=== PATIENT | female | born 1995 | race Two or more races ===

== ENCOUNTER 2023-05-16 11:23 | Inpatient (IN) | payer MEDICAID, OTHER ==
[~2023-05-16] VITALS: Ht 154.9 cm; Wt 67.5 kg
[2023-05-16] MEDS ORDERED: MORPHINE SULFATE 4 MG/ML SYR/VIAL IV ONE (12:15)
[2023-05-16] MEDS ORDERED: ONDANSETRON HCL 4 MG/2 ML VIAL IV ONE (12:15)
[2023-05-16 12:18] LABS: Basophils # (auto) 0 10 ^3/uL (0-0.2); Basophils % (auto) 0.1 % (0.0-2.0); Eosinophils # (auto) 0 10 ^3/uL (0-0.8); Eosinophils % (auto) 0.1 % (0.0-7.0); Hematocrit 32.8 % (36.0-46.0); Hemoglobin 10.5 g/dL (12.2-16.2); Lymphocytes # (auto) 1.8 10 ^3/uL (0.4-5.4); Lymphocytes % (auto) 9.6 % (10.0-50.0); Mean Corpuscular Hemoglobin 27.1 pg (28.0-32.0); Mean Corpuscular Volume 84.7 fL (80.0-100.0); Monocytes # (auto) 0.8 10 ^3/uL (0-1.3); Monocytes % (auto) 4.3 % (0.0-12.0); Neutrophils # (auto) 16.1 10 ^3/uL (1.6-8.6); Neutrophils % (auto) 85.9 % (37.0-80.0); Red Blood Cells 3.87 10^6/uL (4.0-5.20); Red Cell Distribution Width 15.8 % (11.8-14.3); White Blood Cell 18.7 10^3/uL (4.4-10.8)
[2023-05-16 12:33] LABS: Alkaline Phosphatase 93 U/L (46-116); Anion Gap 7 (5-15); Aspartate Aminotransferase 9 U/L (13-40); Bilirubin, Total 0.5 mg/dL (0.2-1.0); Blood Urea Nitrogen 6 mg/dL (9-23); Calcium 8.9 mg/dL (8.7-10.4); Carbon Dioxide 25 mmol/L (20-30); Chloride 105 mmol/L (98-107); Glucose 124 mg/dL (74-106); Potassium 3.4 mmol/L (3.5-5.1); Sodium 137 mmol/L (136-145); Total Protein 6.8 g/dL (5.7-8.2)
[2023-05-16 12:36] LABS: Alanine Aminotransferase < 9 U/L (7-40)
[2023-05-16 13:07] LABS: INR 1.06 (0.9-1.15); Partial Thromboplastin Time 26.5 SEC (24.5-34.5); Prothrombin Time 11.1 sec (9.3-11.8)
[2023-05-16] MEDS ORDERED: KETOROLAC TROMETH 30 MG/ML 1ML VIAL IV ONE (15:00)
[2023-05-16] MEDS ORDERED: NS/OXYTOCIN 20UNITS 1,000 ML IV ONE (15:15)
[2023-05-16] MEDS ORDERED: ceFAZolin 1GM/50ML 50 ML IV ONE (15:15)
[2023-05-16] MEDS ORDERED: miSOPROStol 50 MCG per PRE-CUT 1/2 TAB PR ONE (15:15)
[2023-05-16 15:54] LABS: INR 1.07 (0.9-1.15); Partial Thromboplastin Time 26.9 SEC (24.5-34.5); Prothrombin Time 11.2 sec (9.3-11.8)
[2023-05-16] MEDS ORDERED: ZOFR4T PO (17:23)
[2023-05-16] MEDS ORDERED: HYDR-4902 PO (17:23)
[2023-05-16] MEDS ORDERED: FERR1TAB17 PO (17:23)
[2023-05-16] MEDS ORDERED: ACETAMINOPHEN 325 MG TAB PO PRN (17:30)
[2023-05-16] MEDS ORDERED: POTASSIUM CHL 20MEQ/100ML 100 ML IV ONE (17:30)
[2023-05-16] MEDS ORDERED: ONDANSETRON HCL 4 MG/2 ML VIAL IV PRN ×2 (17:30→18:00)
[2023-05-16] MEDS ORDERED: HYDROcodone-ACET 5/325MG TAB PO PRN (17:30)
[2023-05-16] MEDS ORDERED: fentaNYL CITRATE 100 MCG/2 ML VL ONE (17:52)
[2023-05-16] MEDS ORDERED: PROPOFOL 10 MG/ML 20 ML IV ONE (17:52)
[2023-05-16] MEDS ORDERED: METOCLOPRAMIDE HCL 5MG/ml INJ 2ml VIAL IV PRN (18:00)
[2023-05-16] MEDS ORDERED: RHO (D) IMMUNE GLOBULIN 300 MCG INJ IM PRN (18:00)
[2023-05-16] MEDS ORDERED: MEPERIDINE HCL (25 MG/ML) 1ML VIAL IV PRN (18:00)
[2023-05-16] MEDS ORDERED: HYDROmorphone HCL 2 MG/ML VL/or syr IV PRN (18:00)
[2023-05-16] MEDS ORDERED: ePHEDrine SULFATE 50 MG/ML AMP ONE (18:09)
[2023-05-16] MEDS ORDERED: MEPERIDINE HCL (25 MG/ML) 1ML VIAL ONE (18:10)
[2023-05-16 18:22] VITALS: O2SAT 100
[2023-05-16 20:00] VITALS: PULSE 109; RESP 16; O2SAT 98
[2023-05-16 20:05] VITALS: BP 112/66; PULSE 116; RESP 20; TEMP 97.6; O2SAT 98
[2023-05-16] MEDS: SODIUM CHLORIDE 0.9% 1,000 ML IV SCH (20:43)
[2023-05-16 22:00] VITALS: BP 117/66; PULSE 109; RESP 16; TEMP 97.6; O2SAT 98
[2023-05-16] MEDS: ceFAZolin 1GM/50ML 50 ML IV SCH (23:46)
[2023-05-17] VITALS (11 sets, daily range): BP systolic 93–116; BP diastolic 45–68; PULSE 72–112; RESP 16–19; TEMP 37.2; O2SAT 98–100
[2023-05-17] MEDS: ceFAZolin 1GM/50ML 50 ML IV SCH ×3 (05:30→20:49)
[2023-05-17] MEDS: SODIUM CHLORIDE 0.9% 1,000 ML IV SCH ×3 (05:33→18:25)
[2023-05-17 06:19] LABS: Urine Bacteria NONE SEEN /hpf (None Seen); Urine Blood 3+ /uL (Negative); Urine Clarity Clear (Clear); Urine Color Yellow (Yellow); Urine Mucus FEW (None Seen); Urine Protein, UAD 1+ (Negative); Urine Urobilinogen Normal (Negative); Urine WBC 11 /hpf (0 - 5); Urine pH 5.5 (5.0-8.0)
[2023-05-17 06:33] LABS: Alkaline Phosphatase 56 U/L (46-116); Anion Gap 6 (5-15); Calcium 7.7 mg/dL (8.7-10.4); Carbon Dioxide 23 mmol/L (20-30); Chloride 109 mmol/L (98-107); Glucose 106 mg/dL (74-106); Potassium 3.8 mmol/L (3.5-5.1); Sodium 138 mmol/L (136-145)
[2023-05-17 06:34] LABS: Albumin 2.9 g/dL (3.2-4.8); Aspartate Aminotransferase 8 U/L (13-40); Bilirubin, Total 0.4 mg/dL (0.2-1.0); Total Protein 5.1 g/dL (5.7-8.2)
[2023-05-17 06:38] LABS: Amphetamine Screen, Urine Neg (NEGATIVE)
[2023-05-17 06:39] LABS: Barbiturate Scree,Urine Neg (NEGATIVE); Benzodiazephine Screen, Urine Neg (NEGATIVE); Cannabinoid Screen, Urine Neg (NEGATIVE); Cocaine Screen, Urine Neg (NEGATIVE); Opiate Scree,Urine Pos (NEGATIVE); Phencyclidine Screen, Urine Neg (NEGATIVE)
[2023-05-17 06:44] LABS: Alanine Aminotransferase < 9 U/L (7-40); BUN/Creatinine Ratio 10.6 (10.0-20.0); Blood Urea Nitrogen < 5 mg/dL (9-23)
[2023-05-17 06:50] LABS: Basophils # (auto) 0 10 ^3/uL (0-0.2); Eosinophils # (auto) 0 10 ^3/uL (0-0.8)
[2023-05-17 06:53] LABS: Basophils % (auto) 0.3 % (0.0-2.0); Eosinophils % (auto) 0.4 % (0.0-7.0); Hematocrit 18.4 % (36.0-46.0); Lymphocytes # (auto) 2.1 10 ^3/uL (0.4-5.4); Lymphocytes % (auto) 20.2 % (10.0-50.0); Mean Corpuscular Hemoglobin 27.7 pg (28.0-32.0); Mean Corpuscular Hgb Conc. 32.5 g/dL (32.0-36.0); Mean Corpuscular Volume 85.2 fL (80.0-100.0); Monocytes # (auto) 0.6 10 ^3/uL (0-1.3); Monocytes % (auto) 5.5 % (0.0-12.0); Neutrophils # (auto) 7.8 10 ^3/uL (1.6-8.6); Neutrophils % (auto) 73.6 % (37.0-80.0); Red Blood Cells 2.16 10^6/uL (4.0-5.20); Red Cell Distribution Width 15.4 % (11.8-14.3); White Blood Cell 10.6 10^3/uL (4.4-10.8)
[2023-05-17 10:49] LABS: Hepatitis B Surface Antigen Negative (Negative)
[2023-05-17 11:13] LABS: Hepatitis C Antibody Negative (Negative)
[2023-05-18] MEDS: SODIUM CHLORIDE 0.9% 1,000 ML IV SCH ×2 (02:50→11:08)
[2023-05-18 04:53] VITALS: BP 104/55; PULSE 72; RESP 17; TEMP 98; O2SAT 98
[2023-05-18] MEDS: ceFAZolin 1GM/50ML 50 ML IV SCH (05:11)
[2023-05-18 05:23] LABS: Basophils # (auto) 0 10 ^3/uL (0-0.2); Basophils % (auto) 0.6 % (0.0-2.0); Eosinophils # (auto) 0.1 10 ^3/uL (0-0.8); Eosinophils % (auto) 1.5 % (0.0-7.0); Hematocrit 26.4 % (36.0-46.0); Hemoglobin 8.9 g/dL (12.2-16.2); Lymphocytes # (auto) 2.9 10 ^3/uL (0.4-5.4); Lymphocytes % (auto) 38.7 % (10.0-50.0); Mean Corpuscular Hemoglobin 29.1 pg (28.0-32.0); Mean Corpuscular Hgb Conc. 33.7 g/dL (32.0-36.0); Mean Corpuscular Volume 86.3 fL (80.0-100.0); Monocytes # (auto) 0.4 10 ^3/uL (0-1.3); Monocytes % (auto) 5.4 % (0.0-12.0); Neutrophils % (auto) 53.8 % (37.0-80.0); Red Blood Cells 3.06 10^6/uL (4.0-5.20); Red Cell Distribution Width 16.3 % (11.8-14.3); White Blood Cell 7.5 10^3/uL (4.4-10.8)
[2023-05-18 08:00] VITALS: BP 117/65; PULSE 75; RESP 16; TEMP 97.9; O2SAT 98
[2023-05-18 08:57] VITALS: BP 117/65; PULSE 75; RESP 14; TEMP 97.9; O2SAT 98
[2023-05-18 10:42] VITALS: BP 117/65; PULSE 75; RESP 16; TEMP 97.9; O2SAT 98
== END 2023-05-18 11:30 | disposition home or self-care (01) | DRG 543 ==
LOC: EDBD 11:23 → ER 11:23 → OVERFLOW 17:25 → TELE-CENTR 19:25 → CENTRAL 21:05
PROVIDERS: ADMIT Nurse Practitioner Family; ATTEND Obstetrics & Gynecology
PROC: 10D17ZZ Extraction of Products of Conception, Retained, Via Natural or Artificial Opening (ICD-10-PCS; principal; 2023-05-16 17:55)
PROC: 30233N1 Transfusion of Nonautologous Red Blood Cells into Peripheral Vein, Percutaneous Approach (ICD-10-PCS; 2023-05-17)
DX: O03.4 Incomplete spontaneous abortion without complication (principal); O99.112 Other diseases of the blood and blood-forming organs and certain disorders involving the immune mechanism complicating pregnancy, second trimester; D72.829 Elevated white blood cell count, unspecified; O99.013 Anemia complicating pregnancy, third trimester; Z90.49 Acquired absence of other specified parts of digestive tract; Z3A.13 13 weeks gestation of pregnancy
CPT/HCPCS: 36415; 76801; 76817; 80053; 80307; 81001; 83735; 84702; 85025; 85610; 85730; 86803; 86850; 86900; 86901; 86920; 87040; 87340; 96365; 96375; G0378; J0690; J1885; J2405; J2704; J3480

== ENCOUNTER → 2023-06-29 | Outpatient (CLI) | payer MEDICAID ==
[~2023-06-29] MED LIST: FERR1TAB17 PO; HYDR-4902 PO; ZOFR4T PO
== END | disposition home or self-care (01) ==
LOC: LAB 10:18
PROVIDERS: ATTEND Obstetrics & Gynecology
DX: O03.9 Complete or unspecified spontaneous abortion without complication (principal); Z3A.00 Weeks of gestation of pregnancy not specified
CPT/HCPCS: 36415; 84702